=== PATIENT | female | born 1950 | race Caucasian/White ===

== ENCOUNTER 2025-05-12 09:33 | Outpatient (CLI) | payer MEDICARE | END 2025-05-12 09:34 | disposition home or self-care (01) | LOC: CSHMAMMO 09:33 | PROVIDERS: ATTEND Family Medicine | DX: Z12.31 Encounter for screening mammogram for malignant neoplasm of breast (principal); N63.10 Unspecified lump in the right breast, unspecified quadrant; M85.859 Other specified disorders of bone density and structure, unspecified thigh; Z78.0 Asymptomatic menopausal state; Z80.3 Family history of malignant neoplasm of breast | CPT/HCPCS: 77063; 77067; 77080 ==

== ENCOUNTER 2025-06-22 11:06 | Outpatient (CLI) | payer MEDICARE | END 2025-06-22 11:07 | disposition home or self-care (01) | LOC: CSHULT 11:06 | PROVIDERS: ATTEND Family Medicine | DX: N63.10 Unspecified lump in the right breast, unspecified quadrant (principal) | CPT/HCPCS: 76642; 77065; G0279 ==